=== PATIENT | female | born 1950 | race Caucasian/White ===

== ENCOUNTER 2016-08-14 15:35 | Inpatient (IN) | payer MEDICARE, OTHER ==
--- NOTE | ~2016-08-14 | CN ---
Consultation Report [facility] [address] [place]. [address] NAME: ALEX RUEDA : 48 STATUS : ADM IN PAT#: [id number] AGE: 66 ADM/REG DATE : 08/14/16 MR#: [id number] REPORT SERV DATE: 08/17/16 DICTATED BY: EDVIN ALDANA DATE: 08/17/16 REPORT STATUS : Draft TRANSCRIBED BY: MODNuvia DATE: 08/17/16 CONSULTATION DATE OF CONSULTATION: 08/17/2016 REASON FOR CONSULTATION: this is a Cardiology consultation for atrial fibrillation with rapid ventricular response. HISTORY OF PRESENT ILLNESS: Ms. Rueda is a pleasant 66-year-old woman, with a history of breast cancer, diagnosed in early June. She is seeing Dr. Finnegan as her oncologist, receiving chemotherapy. Approximately 10 days ago, she was going to undergo chemotherapy, but this was held as the patient showed profound dyspnea and a low oxygen saturation. Eventually, it was discovered that she had evidence for pulmonary embolus and pulmonary infarct. She was treated with Eliquis as an outpatient, but about five days later she presented to the hospital after she had complaints of fever. She denied any body aches. She denied any productive sputum. It was felt that the fevers were most likely related to the pulmonary infarct itself. She was admitted for further observation. During this time, she developed atrial fibrillation with a rapid ventricular response. She has no history of atrial fibrillation and no cardiac history. She underwent an echocardiogram showing a little suggestion of RV strain consistent with her prior pulmonary embolus, but otherwise her LV systolic function was intact. There were no valvular abnormalities. The patient has been treated with multiple medications for control of her atrial fibrillation including the use of beta soraya and is currently on IV amiodarone, but unfortunately, ventricular response has remained rapid. We were consulted about further treatment options for her atrial fibrillation. PAST MEDICAL HISTORY: 1. Notable for stage I breast cancer, currently being treated with chemotherapy. 2. Hypertension. 3. Hyperlipidemia. 4. History of asthma. 5. Hypothyroidism. 6. Recent diagnosis of large pulmonary embolus and pulmonary infarction. CURRENT MEDICATIONS: Eliquis which was started for the pulmonary embolus approximately 10 days ago, aspirin, Lipitor, Synthroid, and she is also receiving intravenous amiodarone. FAMILY HISTORY: Negative for premature coronary artery disease or sudden cardiac . No history of breast cancer in her family. REVIEW OF SYSTEMS: Notable for some shortness of breath with modest activity. Although, she denies any dyspnea at rest. She denies any chest pain or chest discomfort. Consultation Report [facility] [id number] [place]. [address] NAME: ALEX RUEDA : 48 STATUS : ADM IN PAT#: [id number] AGE: 66 ADM/REG DATE : 08/14/16 MR#: [id number] REPORT SERV DATE: 08/17/16 DICTATED BY: EDVIN ALDANA DATE: 08/17/16 REPORT STATUS : Draft TRANSCRIBED BY: MODNuvia DATE: 08/17/16 PHYSICAL EXAMINATION: VITAL SIGNS: Blood pressure of 140/76, pulse of 140, irregularly irregular, in atrial fibrillation, respirations of 18, O2 saturation of 96% on 2 L. GENERAL: Well developed, well nourished. HEENT: No icterus. Good dentition. NECK: Supple. No masses or thyromegaly LUNGS: There is some pleuritic discomfort and cough associated with inspiration. COR: Normal S1, S2. No S3 or S4. No murmurs, clicks, rubs. No JVD ABD: Soft, nondistended, nontender, no hepatosplenomegaly. EXT: No clubbing, cyanosis or edema. Peripheral pulses 2+/=bilaterally. SKIN: Warm and dry. No visible lesions. MS: Chest wall without deformity, no obvious clavicular fractures. NEURO/PSYCH: Oriented X3. No anxiety or depression. DIAGNOSTIC STUDIES: EKG on admission showed mild sinus tachycardia, rate at 100 beats per minute. Normal NE, QRS, QT intervals. No evidence for ischemia, infarction, or chamber hypertrophy. Current EKG shows atrial fibrillation with rapid ventricular response. Heart rate 140 beats per minute. No evidence for ischemia, infarction, or chamber hypertrophy. Echocardiogram as mentioned showed ejection fraction of 55%. Normal RV size, slightly hyperdynamic RV at the apex, and a small circumferential pericardial effusion. No valvular abnormalities. IMPRESSION: Atrial fibrillation, most likely related to her recent pulmonary embolus. The patient has rapid ventricular response that has been difficult to control despite use of beta-soraya and intravenous amiodarone. Some of this may be due to her respiratory difficulties and high adrenergic drive in association with her pulmonary issues. I would recommend continuing her IV amiodarone and planning for a transesophageal echocardiogram and a cardioversion as long as the lungs is felt to be acceptable from an anesthesiologist perspective. She will continue on her Eliquis for cerebrovascular accident prophylaxis. If because of pulmonary issues it is felt not possible to perform this right now, we could consider a combination of medications including amiodarone, beta soraya, and possibly even the addition of Cardizem to try to control heart rate. Her systolic blood pressure would appear to be acceptable to try to add additional agents such as beta-blockers and calcium- channel blockers if necessary. SAMANTHA/ALEXA Edvin Aldana M.D. / [id number] Consultation Report [address] [address] NAME: ALEX RUEDA : 49 STATUS : ADM IN PAT#: [id number] AGE: 66 ADM/REG DATE : 08/14/16 MR#: [id number] REPORT SERV DATE: 08/17/16 DICTATED BY: EDVIN ALDANA DATE: 08/17/16 REPORT STATUS : Draft TRANSCRIBED BY: ALEXA DATE: 08/17/16 CC: MD TAWANA Moreno AMANDA M
--- NOTE | ~2016-08-14 | DS ---
Discharge Summary [facility] [address] [place]. [address] NAME: ALEX MYERS : 48 STATUS : DIS IN PAT#: [id number] AGE: 66 ADM/REG DATE : 08/14/16 MR#: [id number] REPORT SERV DATE: 08/24/16 DICTATED BY: AVNI CRISTINA DATE: 08/20/16 REPORT STATUS : Draft TRANSCRIBED BY: MODL DATE: 08/20/16 ADMISSION DATE: 08/14/2016 DISCHARGE DATE: 08/20/2016 CHIEF COMPLAINT: On admission is fever. DISCHARGE DIAGNOSES: 1. Bilateral pulmonary emboli. 2. Atrial fibrillation with rapid ventricular response, likely related to bilateral pulmonary emboli. 3. Triple negative breast cancer. 4. Suspected right community-acquired pneumonia. 5. Hypophosphatemia. 6. Anemia. 7. Elevated BNP, likely related to RV strain due to bilateral pulmonary emboli. 8. Hypoxic respiratory failure due to bilateral pulmonary emboli, which has resolved. HISTORY OF PRESENT ILLNESS: Please see full H and P by Dr. Amos regarding initial presentation. CONSULTANTS DURING THIS HOSPITALIZATION: Included Cardiology as well as Hematology/Oncology, Dr. Finnegan. HOSPITAL COURSE: 1. Bilateral pulmonary emboli with pulmonary infarction and RV strain. The patient was seen by Hematology/Oncology. The patient is known to Dr. Finnegan due to her stage I breast cancer. She is currently going to be discharged on her 10 mg p.o. b.i.d. of Eliquis. 2. Fever. Initially, it was felt on admission this may be related to pulmonary infarction. She continued to have some fevers. It looked like there might be an evolving pneumonia on x-ray. She did get chemotherapy yesterday, and the decision was made to start her on empiric Levaquin. Her procalcitonin was 0.24, unclear if this error is due to pulmonary infarction versus active infection. Dr. Finnegan will follow up with imaging in the outpatient setting after antibiotics. At this point, she has been afebrile for greater than 24 hours and is safe to discharge home. 3. Atrial fibrillation with rapid ventricular response. The patient was placed on diltiazem drip. Initially, her blood pressure had dropped. Thus, she was changed to amiodarone. At that time, Cardiology was consulted. They recommended cardioversion; however, the patient had declined and said they have added diltiazem and metoprolol. She will go home on amiodarone with plan to long-term stop that. I felt this is likely related to her bilateral PEs. Again, she is on Eliquis given her PEs. 4. Triple negative breast cancer stage I. She did get her chemotherapy while she is here given the delay and she has a very treatable cancer. Dr. Finnegan will follow her up as an outpatient to determine timing of next treatment. 5. Anemia, likely related to her chemotherapy. This is grossly stable. It was 8.3 when last checked yesterday. Discharge Summary [address] [address] NAME: ALEX MYERS : 48 STATUS : DIS IN PAT#: [id number] AGE: 66 ADM/REG DATE : 08/14/16 MR#: [id number] REPORT SERV DATE: 08/24/16 DICTATED BY: AVNI CRISTINA DATE: 08/20/16 REPORT STATUS : Draft TRANSCRIBED BY: ALEXA DATE: 08/20/16 6. Elevated BNP, suspect this is related to RV strain and pulmonary emboli. She does not appear grossly volume overloaded. Chest x-ray did not show evidence of pulmonary congestion. DISCHARGE MEDICATIONS: 1. Eliquis 10 mg p.o. b.i.d., and then switched to 5 mg p.o. b.i.d., per instruction of Dr. Finnegan. 2. Aspirin 81 mg daily. 3. Lipitor 10 mg daily. 4. Amiodarone 400 mg daily for 5 days and switched to 400 mg daily. 5. Cardizem 180 mg daily. 6. Metoprolol 25 mg p.o. b.i.d. 7. Levofloxacin 750 mg for 4 additional days after discharge. 8. Levothyroxine 100 mcg daily. 9. Advair 1 puff p.o. b.i.d. 10.Albuterol p.r.n. 11.Vitamin E. 12.Biotin. 13.Fish oil. LABORATORY DATA: Pertinent labs prior to discharge yesterday, hemoglobin was 8.3, white blood cell count 7.3, platelet count of 184. BMP unremarkable with creatinine 0.8. IMAGING: Pertinent imaging in this admission: Last chest x-ray done on the 08/18/2016 showed increased right upper lobe air bronchograms consistent with worsening pneumonic process. Increase solid peripheral pleural-based density in the right upper lobe. It could represent atelectatic lung or pulmonary infarct in this patient with known PE. Echocardiogram summary: Limited echo for reassessment of systolic function. Complete echocardiogram performed on 07/05/2016. Only few images available on 08/16/2016 study. Technically difficult study due to limited acoustic windows. Estimated ejection fraction 50% to 55%. Borderline normal RV size with hyperdynamic RV apex consistent with known PE. Small circumferential pericardial effusion, when compared to previous study, no significant change noted. Previous CTA chest from prior to admission on 08/12/2016 showed impression moderate amount of pulmonary emboli is identified. There is some right heart strain suggested. There was a mild amount of coronary artery disease in the C1 portion of the circumflex. There is also a small to moderate size pericardial effusion present. Incidental gallstones noted. FOLLOWUP: Follow up will be with Dr. Finnegan. DISPOSITION: Home. The patient has declined any home health. Time spent on discharge is greater than 30 minutes. Discharge Summary [address] [address] NAME: ALEX MYERS : 48 STATUS : DIS IN [facility]#: [id number] AGE: 66 ADM/REG DATE : 08/14/16 MR#: [id number] REPORT SERV DATE: 08/24/16 DICTATED BY: AVNI CRISTINA DATE: 08/20/16 REPORT STATUS : Draft TRANSCRIBED BY: ALEXA DATE: 08/20/16 LAYLA/ALEXA Avni Cristina MD / [id number] CC: MD TAWANA Moreno AMANDA M
--- NOTE | ~2016-08-14 | HP ---
History And Physical [facility] [address] [facility] [place]. [address] NAME: ALEX MYERS : 48 STATUS : ADM IN [facility]#: [id number] AGE: 66 ADM/REG DATE : 08/14/16 MR#: [id number] REPORT SERV DATE: 08/14/16 DICTATED BY: ALEXANDRE AMOS DATE: 08/14/16 REPORT STATUS : Draft TRANSCRIBED BY: ALEXA DATE: 08/14/16 DATE OF ADMISSION: 08/14/2016 CHIEF COMPLAINT: Fever. BRIEF HISTORY OF PRESENT ILLNESS: The patient is a 66-year-old white female, presented to the emergency room 08/14/2016 at 1258 hours for complaints of fever of 101.3. She is on active chemotherapy for her stage I breast cancer by Dr. Rene Finnegan. She has had progressive dyspnea and cough. Two days ago, she had acute onset of shortness of breath where she had presented to Dr. Finnegan's office. A stat CT scan revealed pulmonary emboli bilaterally, worse on the left upper lobe. Today, she is having some progressive symptoms. She says she has just been feeling fatigued and weak. She has had exertional dyspnea. She denies any chest pain per se. She has not had any cough or wheezing. She has felt some short of breath, does not use home O2 at home. She was not hypoxic here. She had not had any urinary symptoms. She denies any back pain. Otherwise, she has been in her usual state of health, getting routine chemotherapy through Dr. Finnegan's office. REVIEW OF SYSTEMS: A 12-point review of systems otherwise normal and negative. PAST MEDICAL HISTORY: Significant for hypertension, stage I breast cancer, hyperlipidemia, asthma, hypothyroidism, and a recent pulmonary infarction. PAST SURGICAL HISTORY: Significant for tubal ligation and of her children. ALLERGIES: NO KNOWN DRUG ALLERGIES. HOME MEDICATIONS: Albuterol 1 puff every four hours p.r.n., aspirin 81 mg once daily, Lipitor 10 mg once daily, biotin 5 mg once daily, vitamin D3 of 1000 units once daily, Advair Diskus 250/50 one puff twice daily, levothyroxine 100 mcg daily, omega-3 fatty acid fish oil, Micardis HCT 80/12.5, vitamin E 1000 units once daily, Eliquis 5 mg twice daily, and chemo IV every 21 days. SOCIAL HISTORY: The patient lives currently with the daughter because of the recent illness, otherwise independent. She denies use of alcohol, tobacco, or illicit substances. FAMILY HISTORY: No history of breast cancer in the siblings or in any of her children. Mother had lung cancer that was related to smoking. No history of heart disease, diabetes, or hypertension in the family. PHYSICAL EXAMINATION: GENERAL: White female, lying on a gurney, appears to be in no obvious respiratory distress, but she is awake and alert, she is oriented, but does appear chronically ill. VITAL SIGNS: Blood pressure upon arrival to the emergency room was 103/56, temperature was 98.1, pulse of 105, saturation of 87% on room air and 100% on 2 L. HEENT: Head is normocephalic, atraumatic. Pupils are equal, round, and reactive to light. History And Physical [address] [address] NAME: ALEX MYERS : 48 STATUS : ADM IN [facility]#: [id number] AGE: 66 ADM/REG DATE : 08/14/16 MR#: [id number] REPORT SERV DATE: 08/14/16 DICTATED BY: ALEXANDRE AMOS DATE: 08/14/16 REPORT STATUS : Draft TRANSCRIBED BY: ALEXA DATE: 08/14/16 Extraocular muscles are intact. Sclerae anicteric. Conjunctivae normal. Oropharynx is without lesion. Tongue protrusion midline. Uvula midline. NECK: Supple. No evidence of jugular venous distention. No carotid bruits or thyromegaly is appreciated. No lymphadenopathy in the neck is palpable. HEART: Regular rate rhythm, tachycardia. No rubs or gallops. PMI nondisplaced. LUNGS: Clear to auscultation except in the right upper lobe. There a few crackles and no evidence of focal consolidation. ABDOMEN: Slightly obese, soft, nontender, good bowel sounds. No rebound or guarding. No organomegaly. EXTREMITIES: Without cyanosis, clubbing, or edema. NEUROLOGICAL: Seems to be grossly intact. LABORATORY DATA: ABG; pH of 7.59, pCO2 of 26, pO2 of 106, bicarb calculated is 24. Electrolytes: Sodium of 138, potassium of 2.9, chloride of 101, bicarb 26, BUN 15, creatinine 1.13, glucose is 125. Magnesium 1.8. Troponin less than 0.02. Calcium 8.5. BNP of 29. White count is 7.1, hemoglobin of 9.3, hematocrit of 28, platelet count is 237,000. PT is 25 and INR of 2.4. Urinalysis shows large amount of blood, moderate amount of leuko esterase, 10 rbc's, 27 wbc's, no bacteria. Cultures are pending. Chest x-ray shows infiltrate in the right upper lobe may be secondary to pulmonary infarction. IMPRESSION: 1. Pulmonary embolism. 2. Pulmonary infarction. 3. Breast cancer stage I. 4. Hypertension. 5. Hyperlipidemia. 6. Asthma. 7. Hypothyroidism. PLAN: The patient will be admitted. At this time, I do not feel that she needs antibiotics as this is related to her pulmonary infarction. We will check a procalcitonin level and a lactate level, and if there is a high indication for need of antibiotics, antibiotics will be appropriately initiated. We will await for blood cultures and urine culture before those decisions are made. I do not believe that this patient has a urinary tract infection at this time given her urinalysis. We will obtain a PA and lateral dedicated chest x-ray to further evaluate the pulmonary infarction. Pulmonary infarction certainly can give fevers in an immunocompromised patient. We will obtain a two-dimensional echocardiogram because she did have right ventricular strain on the CT scan to further assess for any pulmonary hypertension. We will continue to follow her troponin serially as she is at high risk for developing nonischemic events because of the PE. We will try to wean her oxygen as tolerated to keep in a sat of 92%. I have personally addressed all home medications. I do not see a reason to start heparin drip as she is well therapeutic on the Eliquis, and we would continue Eliquis at this time. The patient remains a full code. History And Physical [address] [place]. [address] NAME: ALEX MYERS : 48 STATUS : ADM IN [facility]#: [id number] AGE: 66 ADM/REG DATE : 08/14/16 MR#: [id number] REPORT SERV DATE: 08/14/16 DICTATED BY: ALEXANDRE AMOS DATE: 08/14/16 REPORT STATUS : Draft TRANSCRIBED BY: ALEXA DATE: 08/14/16 SV/ALEXA Alexandre Amos M.D. / [id number] CC: Reymundo Doe AMANDA M Benjamin R Nadeau, MD
[2016-08-14 13:26] LABS: BE (BASE EXCESS) 3.2 MEQ/L (0 +/- 2.5); CARBOXYHEMOGLOBIN 0.7 % (0-3); HCO3 (ACTUAL BICARBONATE) 24.3 MEQ/L (23-27); HEMOBLOGIN CONTENT 9.6 G/DL (12-16); INSTRUMENT SERIAL # 8087; METHEMOGLOBIN 0.3 % (0-3); O2 CONTENT 13.3 VOL% (18-24); PCO2 (CO2 TENSION) 26 MMHG (35-45); PO2 (O2 TENSION) 106 MMHG (79-93); pH 7.59 (7.37-7.43)
[2016-08-14 13:27] LABS: ALLENS TEST Pos; DEVICE NC; SAMPLE Arterial
[2016-08-14 14:13] LABS: ASCORBIC ACID (UR NOT ORDER) NEG (NEG); BILIRUBIN, URINE NEGATIVE (NEG); ER URINALYSIS TAT 0 Hrs 16 Mins; KETONE, URINE NEGATIVE (NEG); LEUKOCYTE ESTERASE(NOT OR MOD (NEG); NITRITE (URINE) NEG (NEG); WBC (NOT ORDERED) (RFLEX) 27 (0-5)
[2016-08-14 14:15] LABS: BASOPHILS 1.4 %; EOSINOPHILS 0 %; ER CBC TAT 0 Hrs 18 Mins; IMMATURE GRANULOCYTES 0.7 %; IMMATURE GRANULOCYTES ABSOLUTE 0.05 10/3/uL (0.0-0.11); LYMPHOCYTES 13.8 %; LYMPHOCYTES ABSOLUTE 0.98 10/3/uL (0.67-4.30); MEAN CORPUS HGB CONC 32.5 g/dL (32.0-36.0); MEAN CORPUSCULAR HEMOGLOB 27.2 pg (26.0-34.0); MEAN CORPUSCULAR VOLUME 83.6 fL (80-100); MONOCYTES 4.4 %; MONOCYTES ABSOLUTE 0.31 10/3/uL (0.21-1.20); NEUTROPHILS 79.7 %; NEUTROPHILS ABSOLUTE 5.64 10/3/uL (2.02-8.40); PLATELET COUNT 237 10/3/uL (150-400); RBC DISTRIBUTION WIDTH 16.4 % (12.0-16.0); RED CELL COUNT 3.42 10/6/uL (4.0-5.6); WHITE BLOOD CELLS 7.1 10/3/uL (4.5-10.5)
[2016-08-14 14:16] LABS: HEMATOCRIT 28.6 % (36.0-48.0); HEMOGLOBIN 9.3 g/dL (12.0-16.0); MANUAL DIFF NO %
[2016-08-14 14:19] LABS: INTERNATIONAL NORMAL RATI 2.4 UNITS (-); PARTIAL THROMBO TIME 34.3 SEC (22.5-37.2); PROTIME (NOT ORD) 25.9 SEC (12.0-14.5)
[2016-08-14 14:27] LABS: BUN (BLOOD UREA NITROGEN) 15 MG/DL (6-23); CALCIUM, SERUM 8.5 MG/DL (8.5-10.4); CHEST PAIN PROFILE TAT 0 Hrs 30 Mins; CHLORIDE, SERUM 101 MMOL/L (96-112); CO2 (CARBON DIOXIDE) 26 MMOL/L (24-34); CREATININE 1.13 MG/DL (0.55-1.02); GFR AFRICAN AMERICAN 58 ML/MIN (>=60); GFR NON AFRICAN AMERICAN 50 ML/MIN (>=60); GLUCOSE, SERUM 125 MG/DL (60-99); POTASSIUM, SERUM 2.9 MMOL/L (3.5-5.3); SODIUM, SERUM 138 MMOL/L (135-148); TROPONIN I <0.02 NG/ML (<0.05)
[~2016-08-14 15:35] MED LIST: ADVAIR250 INH; ASAB PO; BIOTIN5 MG PO; CHEMO IV; FISH-EPA1000 MG PO; MICARDIS HCT PO; VENTOLIN HFA INH
[2016-08-14 20:19] LABS: TROPONIN I 0.03 NG/ML (<0.05)
[2016-08-14 21:11] LABS: PROCALCITONIN 0.69 ng/mL (<0.5)
[2016-08-15 01:58] LABS: BASOPHILS ABSOLUTE 0.05 10/3/uL (0.0-0.16); EOSINOPHILS 0 %; HEMOGLOBIN 8.2 g/dL (12.0-16.0); IMMATURE GRANULOCYTES 1.3 %; IMMATURE GRANULOCYTES ABSOLUTE 0.06 10/3/uL (0.0-0.11); LYMPHOCYTES 7.1 %; LYMPHOCYTES ABSOLUTE 0.34 10/3/uL (0.67-4.30); MEAN CORPUS HGB CONC 32.3 g/dL (32.0-36.0); MEAN CORPUSCULAR HEMOGLOB 27.3 pg (26.0-34.0); MEAN CORPUSCULAR VOLUME 84.7 fL (80-100); MEAN PLATELET VOLUME 9.1 fL (9.2-13.0); MONOCYTES 14.4 %; MONOCYTES ABSOLUTE 0.69 10/3/uL (0.21-1.20); NEUTROPHILS 76.2 %; NEUTROPHILS ABSOLUTE 3.66 10/3/uL (2.02-8.40); NUCLEATED RED BLOOD CELLS 0.3 /100WBC (0-0); PLATELET COUNT 175 10/3/uL (150-400); RBC DISTRIBUTION WIDTH 16.4 % (12.0-16.0); WHITE BLOOD CELLS 4.8 10/3/uL (4.5-10.5)
[2016-08-15 01:59] LABS: HEMATOCRIT 25.4 % (36.0-48.0); MANUAL DIFF NO %
[2016-08-15 03:13] LABS: ALBUMIN 2.6 G/DL (3.5-5.0); BUN (BLOOD UREA NITROGEN) 15 MG/DL (6-23); CHLORIDE, SERUM 108 MMOL/L (96-112); CO2 (CARBON DIOXIDE) 28 MMOL/L (24-34); CREATININE 0.99 MG/DL (0.55-1.02); GFR AFRICAN AMERICAN 68 ML/MIN (>=60); GFR NON AFRICAN AMERICAN 59 ML/MIN (>=60); GLUCOSE, SERUM 127 MG/DL (60-99); PHOSPHORUS, SERUM 3.1 MG/DL (2.5-4.5); TROPONIN I <0.02 NG/ML (<0.05)
[2016-08-15 03:27] LABS: POTASSIUM, SERUM 3.7 MMOL/L (3.5-5.3); SODIUM, SERUM 145 MMOL/L (135-148)
[2016-08-16 04:45] LABS: BASOPHILS 0.4 %; BASOPHILS ABSOLUTE 0.02 10/3/uL (0.0-0.16); EOSINOPHILS 0.2 %; EOSINOPHILS ABSOLUTE 0.01 10/3/uL (0.0-0.53); HEMATOCRIT 22.9 % (36.0-48.0); HEMOGLOBIN 7.3 g/dL (12.0-16.0); IMMATURE GRANULOCYTES 0.4 %; IMMATURE GRANULOCYTES ABSOLUTE 0.02 10/3/uL (0.0-0.11); LYMPHOCYTES 13.3 %; LYMPHOCYTES ABSOLUTE 0.61 10/3/uL (0.67-4.30); MEAN CORPUS HGB CONC 31.9 g/dL (32.0-36.0); MEAN CORPUSCULAR HEMOGLOB 26.9 pg (26.0-34.0); MEAN CORPUSCULAR VOLUME 84.5 fL (80-100); MEAN PLATELET VOLUME 8.9 fL (9.2-13.0); MONOCYTES 8.3 %; MONOCYTES ABSOLUTE 0.38 10/3/uL (0.21-1.20); NEUTROPHILS 77.4 %; NEUTROPHILS ABSOLUTE 3.54 10/3/uL (2.02-8.40); PLATELET COUNT 181 10/3/uL (150-400); RBC DISTRIBUTION WIDTH 16.7 % (12.0-16.0); RED CELL COUNT 2.71 10/6/uL (4.0-5.6); WHITE BLOOD CELLS 4.6 10/3/uL (4.5-10.5)
[2016-08-16 04:52] LABS: MANUAL DIFF NO %
[2016-08-16 04:59] LABS: ALBUMIN 2.5 G/DL (3.5-5.0); CALCIUM, SERUM 8.2 MG/DL (8.5-10.4); CHLORIDE, SERUM 107 MMOL/L (96-112); CO2 (CARBON DIOXIDE) 26 MMOL/L (24-34); CREATININE 0.79 MG/DL (0.55-1.02); GFR AFRICAN AMERICAN 90 ML/MIN (>=60); GFR NON AFRICAN AMERICAN 77 ML/MIN (>=60); GLUCOSE, SERUM 107 MG/DL (60-99); SODIUM, SERUM 141 MMOL/L (135-148)
[2016-08-16 05:10] LABS: BUN (BLOOD UREA NITROGEN) 7 MG/DL (6-23); PHOSPHORUS, SERUM 2.1 MG/DL (2.5-4.5)
[2016-08-17 05:38] LABS: BASOPHILS 0.6 %; BASOPHILS ABSOLUTE 0.04 10/3/uL (0.0-0.16); EOSINOPHILS 0 %; IMMATURE GRANULOCYTES ABSOLUTE 0.07 10/3/uL (0.0-0.11); LYMPHOCYTES 5.4 %; LYMPHOCYTES ABSOLUTE 0.37 10/3/uL (0.67-4.30); MEAN CORPUS HGB CONC 32.5 g/dL (32.0-36.0); MEAN CORPUSCULAR HEMOGLOB 27.8 pg (26.0-34.0); MEAN CORPUSCULAR VOLUME 85.5 fL (80-100); MEAN PLATELET VOLUME 9.1 fL (9.2-13.0); MONOCYTES 6.4 %; MONOCYTES ABSOLUTE 0.44 10/3/uL (0.21-1.20); NEUTROPHILS 86.6 %; NEUTROPHILS ABSOLUTE 5.92 10/3/uL (2.02-8.40); PLATELET COUNT 176 10/3/uL (150-400); RBC DISTRIBUTION WIDTH 16.4 % (12.0-16.0); RED CELL COUNT 3.24 10/6/uL (4.0-5.6)
[2016-08-17 05:43] LABS: HEMATOCRIT 27.7 % (36.0-48.0); WHITE BLOOD CELLS 6.8 10/3/uL (4.5-10.5)
[2016-08-17 05:44] LABS: MANUAL DIFF NO %
[2016-08-17 06:14] LABS: ALBUMIN 2.3 G/DL (3.5-5.0); BUN (BLOOD UREA NITROGEN) 6 MG/DL (6-23); CALCIUM, SERUM 8.1 MG/DL (8.5-10.4); CHLORIDE, SERUM 109 MMOL/L (96-112); CREATININE 0.81 MG/DL (0.55-1.02); GFR AFRICAN AMERICAN 87 ML/MIN (>=60); GFR NON AFRICAN AMERICAN 75 ML/MIN (>=60); GLUCOSE, SERUM 117 MG/DL (60-99); PHOSPHORUS, SERUM 1.9 MG/DL (2.5-4.5); POTASSIUM, SERUM 3.6 MMOL/L (3.5-5.3); SODIUM, SERUM 141 MMOL/L (135-148)
[2016-08-17 06:15] LABS: CO2 (CARBON DIOXIDE) 20 MMOL/L (24-34)
[2016-08-18 11:38] LABS: BASOPHILS 0.3 %; BASOPHILS ABSOLUTE 0.04 10/3/uL (0.0-0.16); EOSINOPHILS 0 %; HEMATOCRIT 27.9 % (36.0-48.0); HEMOGLOBIN 9.1 g/dL (12.0-16.0); IMMATURE GRANULOCYTES 0.7 %; IMMATURE GRANULOCYTES ABSOLUTE 0.08 10/3/uL (0.0-0.11); LYMPHOCYTES 3.9 %; LYMPHOCYTES ABSOLUTE 0.45 10/3/uL (0.67-4.30); MEAN CORPUS HGB CONC 32.6 g/dL (32.0-36.0); MEAN CORPUSCULAR HEMOGLOB 27.4 pg (26.0-34.0); MEAN PLATELET VOLUME 9.7 fL (9.2-13.0); MONOCYTES 3.3 %; MONOCYTES ABSOLUTE 0.38 10/3/uL (0.21-1.20); NEUTROPHILS 91.8 %; PLATELET COUNT 184 10/3/uL (150-400); RBC DISTRIBUTION WIDTH 16.3 % (12.0-16.0); RED CELL COUNT 3.32 10/6/uL (4.0-5.6)
[2016-08-18 11:39] LABS: MANUAL DIFF NO %; WHITE BLOOD CELLS 11.6 10/3/uL (4.5-10.5)
[2016-08-18 11:45] LABS: INTERNATIONAL NORMAL RATI 2.8 UNITS (-)
[2016-08-18 11:51] LABS: BUN (BLOOD UREA NITROGEN) 8 MG/DL (6-23); CALCIUM, SERUM 7.9 MG/DL (8.5-10.4); CHLORIDE, SERUM 110 MMOL/L (96-112); CO2 (CARBON DIOXIDE) 21 MMOL/L (24-34); CREATININE 0.72 MG/DL (0.55-1.02); GFR AFRICAN AMERICAN 100 ML/MIN (>=60); GFR NON AFRICAN AMERICAN 87 ML/MIN (>=60); GLUCOSE, SERUM 119 MG/DL (60-99); PHOSPHORUS, SERUM 2.3 MG/DL (2.5-4.5); POTASSIUM, SERUM 3.8 MMOL/L (3.5-5.3); SODIUM, SERUM 142 MMOL/L (135-148)
[2016-08-18 13:23] LABS: ASCORBIC ACID (UR NOT ORDER) NEG (NEG); BILIRUBIN, URINE NEGATIVE (NEG); KETONE, URINE NEGATIVE (NEG); LEUKOCYTE ESTERASE(NOT OR TRACE (NEG); WBC (NOT ORDERED) (RFLEX) 9 (0-5)
[2016-08-18 16:41] LABS: PROCALCITONIN 0.24 ng/mL (<0.5)
[2016-08-19 04:39] LABS: BASOPHILS 0.4 %; BASOPHILS ABSOLUTE 0.03 10/3/uL (0.0-0.16); EOSINOPHILS 0 %; HEMOGLOBIN 8.3 g/dL (12.0-16.0); IMMATURE GRANULOCYTES 0.8 %; IMMATURE GRANULOCYTES ABSOLUTE 0.06 10/3/uL (0.0-0.11); LYMPHOCYTES 5.1 %; LYMPHOCYTES ABSOLUTE 0.37 10/3/uL (0.67-4.30); MEAN CORPUS HGB CONC 31.9 g/dL (32.0-36.0); MEAN CORPUSCULAR HEMOGLOB 27.3 pg (26.0-34.0); MEAN CORPUSCULAR VOLUME 85.5 fL (80-100); MEAN PLATELET VOLUME 9.7 fL (9.2-13.0); MONOCYTES 9.3 %; MONOCYTES ABSOLUTE 0.68 10/3/uL (0.21-1.20); NEUTROPHILS 84.4 %; NEUTROPHILS ABSOLUTE 6.18 10/3/uL (2.02-8.40); PLATELET COUNT 184 10/3/uL (150-400); RBC DISTRIBUTION WIDTH 16.8 % (12.0-16.0); RED CELL COUNT 3.04 10/6/uL (4.0-5.6); WHITE BLOOD CELLS 7.3 10/3/uL (4.5-10.5)
[2016-08-19 04:50] LABS: MANUAL DIFF NO %
[2016-08-19 04:52] LABS: BUN (BLOOD UREA NITROGEN) 9 MG/DL (6-23); CALCIUM, SERUM 8.2 MG/DL (8.5-10.4); CHLORIDE, SERUM 111 MMOL/L (96-112); CO2 (CARBON DIOXIDE) 21 MMOL/L (24-34); GFR AFRICAN AMERICAN 88 ML/MIN (>=60); GFR NON AFRICAN AMERICAN 76 ML/MIN (>=60); GLUCOSE, SERUM 97 MG/DL (60-99); PHOSPHORUS, SERUM 2.5 MG/DL (2.5-4.5); POTASSIUM, SERUM 3.9 MMOL/L (3.5-5.3); SODIUM, SERUM 143 MMOL/L (135-148)
[2016-08-20] MEDS ORDERED: CARDCD180 PO (14:14)
[2016-08-20] MEDS ORDERED: LOP25 PO (14:15)
[2016-08-20] MEDS ORDERED: PACERONE400 MG PO (14:16)
[2016-08-20] MEDS ORDERED: LEVAQUIN750 MG PO (14:17)
[2016-12-10] MEDS ORDERED: ASAB PO (18:24)
[2016-12-10] MEDS ORDERED: ELIQUIS 5 MG TAB5 MG PO (18:25)
[2016-12-10] MEDS ORDERED: LIPITOR10 PO (18:25)
[2016-12-10] MEDS ORDERED: HYDROCHLOROT12.5 MG PO (18:27)
[2016-12-10] MEDS ORDERED: LEVOTHYROXIN100 MCG PO (18:28)
[2016-12-10] MEDS ORDERED: VITAMIN D31000 UNIT PO (18:28)
[2016-12-10] MEDS ORDERED: VITE1000 PO (18:28)
[2016-12-10] MEDS ORDERED: KLOR-CON 1010 MEQ PO (18:28)
[2016-12-10] MEDS ORDERED: ADVAIR250 INH (18:29)
== END 2016-08-20 15:26 | disposition home or self-care (01) | DRG 175 ==
LOC: ER 15:35 → 4EA 15:44 → 5NO 15:51
PROVIDERS: Emergency Medicine; Internal Medicine; Internal Medicine Hematology & Oncology
PROC: 30233N1 Transfusion of Nonautologous Red Blood Cells into Peripheral Vein, Percutaneous Approach (ICD-10-PCS; principal; 2016-08-16)
DX: I26.99 Other pulmonary embolism without acute cor pulmonale (principal); J18.9 Pneumonia, unspecified organism; J96.01 Acute respiratory failure with hypoxia; C50.919 Malignant neoplasm of unspecified site of unspecified female breast; I48.91 Unspecified atrial fibrillation; D64.81 Anemia due to antineoplastic chemotherapy; I10 Essential (primary) hypertension; E78.5 Hyperlipidemia, unspecified; E03.9 Hypothyroidism, unspecified; J45.909 Unspecified asthma, uncomplicated; T45.1X5A Adverse effect of antineoplastic and immunosuppressive drugs, initial encounter; Z79.82 Long term (current) use of aspirin; Z79.899 Other long term (current) drug therapy; Z79.01 Long term (current) use of anticoagulants; Y92.9 Unspecified place or not applicable
CPT/HCPCS: 36415; 36600; 71010; 71020; 71275; 80048; 80069; 81001; 82805; 83605; 83735; 83880; 84100; 84145; 84484; 85025; 85610; 85730; 86850; 86900; 86901; 86920; 87040; 87086; 87449; 93005; 93306; 93308; 93321; 93325; 94640; 99285; A9270-GY; J0282; J1160; J2405; J9000; J9070; P9016; Q9967